=== PATIENT | male | born 1940 | race African-American/Black ===

== ENCOUNTER 2016-07-27 10:48 | Emergency (ER) | payer OTHER ==
[~2016-07-27] VITALS: Ht 180.3 cm; Wt 72.6 kg
[2016-07-27] MEDS ORDERED: GABAPENTIN 100100 MG PER TUBE (11:03)
[2016-07-27] MEDS ORDERED: METFORMIN HCL500 MG PER TUBE (11:03)
[2016-07-27] MEDS ORDERED: LIORESAL 10 MG10 MG PER TUBE (11:04)
[2016-07-27] MEDS ORDERED: OMEPRAZOLE20 M1 PER TUBE (11:04)
[2016-07-27] MEDS ORDERED: NITROFURANTOIN50 M2 PER TUBE (11:05)
[2016-07-27] MEDS ORDERED: STOOL SOFTENER100 M1 PER TUBE (11:06)
[2016-07-27] MEDS ORDERED: NAPROSYN500 MG PER TUBE (11:06)
[2016-07-27] MEDS ORDERED: LIDODERM 5%1 PATC1 TRANSDERM (11:07)
[2016-07-27] MEDS ORDERED: VITAMINC500 PER TUBE (11:07)
[2016-07-27] MEDS ORDERED: ZINC50 M1 PER TUBE (11:07)
[2016-07-27 11:54] LABS: URINE BILIRUBIN NEGATIVE (Negative); URINE BLOOD 3+ (Negative); URINE COLOR YELLOW; URINE GLUCOSE-RANDOM* NEGATIVE (Negative); URINE KETONES 1+ (Negative); URINE LEUKOCYTES-REFLEX 2+ (Negative); URINE PROTEIN (DIPSTICK) 1+ (Negative); URINE SPECIFIC GRAVITY 1.025 (1.003-1.035)
[2016-07-27 11:57] LABS: URINE WBC-REFLEX >25 Many /HPF (0-5)
[2016-07-27 11:59] LABS: CASTS None Seen /LPF (None Seen); CRYSTALS None Seen /LPF (None Seen); SQUAMOUS 0-3 Few /LPF (0-3)
[2016-07-27 12:34] LABS: ABSOLUTE NEUTROPHILS 8.6 thou/uL (1.4-8.2); BASOPHILS 0.7 % (0.0-2.0); EOSINOPHILS 1.9 % (0.0-3.0); HEMATOCRIT 43.4 % (42.0-52.0); HEMOGLOBIN 14.6 gm/dL (14.0-18.0); LYMPHOCYTES 16.3 % (24.0-44.0); MANUAL DIFF NO; MCH 30.4 pg (26.0-34.0); MCHC 33.6 % (28.0-37.0); MCV 90.6 fL (80.0-100.0); MONOCYTES 9.9 % (1.0-8.0); PLATELET COUNT 191 thou/uL (150-400); POLYS 71.2 % (36.0-66.0); RBC 4.79 mil/uL (4.50-6.00); RDW 15.2 % (10.5-14.5); WBC 12.1 thou/uL (4.0-11.0)
[2016-07-27 12:48] LABS: CALCIUM 8.9 mg/dL (8.5-10.1); CREATININE 0.7 mg/dL (0.6-1.3); POTASSIUM 4.2 mmol/L (3.5-5.1)
[2016-07-27 12:54] LABS: ALBUMIN 3.6 g/dL (3.4-5.0); TOTAL BILIRUBIN 0.4 mg/dL (<0.1-1.0); TOTAL PROTEIN 8.7 g/dL (6.4-8.2)
[2016-07-27] MEDS ORDERED: AUGMENTIN 875-1 EACH PO (14:49)
[2016-07-27] MEDS ORDERED: PRILOSEC 20 MG20 MG PO (14:57)
[2016-07-27 15:53] VITALS: BP 113/67
== END 2016-07-27 15:56 | disposition home or self-care (01) ==
LOC: ER 10:48
PROVIDERS: Emergency Medicine
DX: N39.0 Urinary tract infection, site not specified (principal); L03.311 Cellulitis of abdominal wall; T83.098D Other mechanical complication of other urinary catheter, subsequent encounter; K59.00 Constipation, unspecified; E11.9 Type 2 diabetes mellitus without complications

== ENCOUNTER 2017-12-18 23:57 | Inpatient (IN) | payer OTHER ==
[~2017-12-18] VITALS: Ht 180.3 cm; Wt 71.3 kg
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
[~2017-12-18 23:57] MED LIST: AUGMENTIN 875-1 EACH PO; GABAPENTIN 100100 MG PER TUBE; LIDODERM 5%1 PATC1 TRANSDERM; LIORESAL 10 MG10 MG PER TUBE; METFORMIN HCL500 MG PER TUBE; NAPROSYN500 MG PER TUBE; NITROFURANTOIN50 M2 PER TUBE; OMEPRAZOLE20 M1 PER TUBE; PRILOSEC 20 MG20 MG PO; STOOL SOFTENER100 M1 PER TUBE; VITAMINC500 PER TUBE; ZINC50 M1 PER TUBE
[2017-12-19] VITALS (8 sets, daily range): BP systolic 102–121; BP diastolic 55–75
[2017-12-19 01:10] LABS: ABSOLUTE NEUTROPHILS 7.5 thou/uL (1.4-8.2); BASOPHILS 0.6 % (0.0-2.0); EOSINOPHILS 1.5 % (0.0-3.0); HEMATOCRIT 40.8 % (42.0-52.0); HEMOGLOBIN 13.8 gm/dL (14.0-18.0); LYMPHOCYTES 13.8 % (24.0-44.0); MCH 30.8 pg (26.0-34.0); MCHC 33.7 g/dL (28.0-37.0); MCV 91.4 fL (80.0-100.0); MONOCYTES 9.5 % (1.0-8.0); PLATELET COUNT 229 thou/uL (150-400); POLYS 74.6 % (36.0-66.0); RBC 4.46 mil/uL (4.50-6.00); RDW 15.6 % (10.5-14.5); WBC 10.1 thou/uL (4.0-11.0)
[2017-12-19 01:17] LABS: URINE BILIRUBIN NEGATIVE (Negative); URINE BLOOD 1+ (Negative); URINE CLARITY SL CLOUDY; URINE COLOR YELLOW; URINE GLUCOSE-RANDOM* NEGATIVE (Negative); URINE KETONES NEGATIVE (Negative); URINE NITRITE-REFLEX NEGATIVE (Negative); URINE PROTEIN (DIPSTICK) NEGATIVE (Negative); URINE SPECIFIC GRAVITY 1.015 (1.005-1.035)
[2017-12-19 01:17] LABS: CREATININE 0.9 mg/dL (0.7-1.3)
[2017-12-19 01:19] LABS: URINE LEUKOCYTES-REFLEX 3+ (Negative)
[2017-12-19 01:23] LABS: ALBUMIN 3.6 g/dL (3.4-5.0); TOTAL BILIRUBIN 0.2 mg/dL (<0.1-1.0); TOTAL PROTEIN 8.9 g/dL (6.4-8.2)
[2017-12-19 01:32] LABS: BACTERIA-REFLEX >30 Many /HPF (None Seen); CASTS None Seen /LPF (None Seen); CRYSTALS None Seen /LPF (None Seen); MUCUS 0-3 Light strn/LPF (None Seen); SQUAMOUS >10 Many /LPF (0-3); URINE RBC 3-10 Few /HPF (0-2); URINE WBC-REFLEX >25 Many /HPF (0-5)
[2017-12-19] MEDS ORDERED: ZINC50 M2 PER TUBE (04:39)
[2017-12-19] MEDS ORDERED: LACTULOSE10 GM/15 M PER TUBE (04:43)
[2017-12-20] MEDS ORDERED: AUGMENTIN 875-1 EACH PO ×2 (15:42→15:43)
[2017-12-20 16:38] VITALS: BP 112/65
== END 2017-12-20 18:36 | disposition home health service (06) | DRG 698 ==
LOC: ER 23:57 → 4W 12-19 02:12 → EROBS 12-19 02:12 → 4W 12-19 03:03
PROVIDERS: Emergency Medicine
DX: T83.518A Infection and inflammatory reaction due to other urinary catheter, initial encounter (principal); L89.614 Pressure ulcer of right heel, stage 4; L89.894 Pressure ulcer of other site, stage 4; G82.50 Quadriplegia, unspecified; N39.0 Urinary tract infection, site not specified; E11.9 Type 2 diabetes mellitus without complications; L89.152 Pressure ulcer of sacral region, stage 2; Y83.8 Other surgical procedures as the cause of abnormal reaction of the patient, or of later complication, without mention of misadventure at the time of the procedure; Z93.1 Gastrostomy status; Z79.899 Other long term (current) drug therapy; Z90.49 Acquired absence of other specified parts of digestive tract; Y92.89 Other specified places as the place of occurrence of the external cause
CPT/HCPCS: 10045

== ENCOUNTER 2020-01-16 21:38 | Inpatient (IN) | payer OTHER ==
[~2020-01-16] VITALS: Ht 182.9 cm; Wt 72.6 kg
[~2020-01-16 21:38] MED LIST changes: +LACTULOSE10 GM/15 M PER TUBE; +ZINC50 M2 PER TUBE
[2020-01-16 21:39] VITALS: BP 143/66
[2020-01-16 22:07] LABS: ABSOLUTE NEUTROPHILS 10.8 thou/uL (1.4-8.2); BASOPHILS 0.3 % (0.0-2.0); EOSINOPHILS 0.7 % (0.0-3.0); HEMATOCRIT 43.1 % (42.0-52.0); HEMOGLOBIN 13.7 gm/dL (14.0-18.0); LYMPHOCYTES 4.2 % (24.0-44.0); MCH 30.2 pg (26.0-34.0); MCHC 31.9 g/dL (28.0-37.0); MCV 94.6 fL (80.0-100.0); MONOCYTES 5.5 % (1.0-8.0); PLATELET COUNT 192 thou/uL (150-400); POLYS 89.3 % (36.0-66.0); RBC 4.55 mil/uL (4.50-6.00); RDW 16.2 % (10.5-14.5); WBC 12.1 thou/uL (4.0-11.0)
[2020-01-16 22:13] LABS: ANION GAP 1 mmol/L (7-16); BUN 17 mg/dL (7-18); CALCIUM 6.5 mg/dL (8.5-10.1); CHLORIDE 108 mmol/L (98-107); CO2 31 mmol/L (21-32); CREATININE 0.3 mg/dL (0.7-1.3); GLUCOSE 134 mg/dL (74-106); POTASSIUM 3.7 mmol/L (3.5-5.1); SODIUM 140 mmol/L (136-145)
[2020-01-16 22:21] LABS: URINE BILIRUBIN NEGATIVE (Negative); URINE BLOOD 2+ (Negative); URINE CLARITY CLOUDY; URINE COLOR YELLOW; URINE GLUCOSE-RANDOM* NEGATIVE (Negative); URINE KETONES NEGATIVE (Negative); URINE NITRITE-REFLEX NEGATIVE (Negative); URINE PROTEIN (DIPSTICK) 1+ (Negative); URINE SPECIFIC GRAVITY >= 1.030 (1.005-1.035); URINE UROBILINOGEN 0.2 E.U./dl (0.2-1.0)
[2020-01-16 22:23] LABS: ALBUMIN 2.3 g/dL (3.4-5.0); SGOT 22 U/L (15-37); SGPT 15 U/L (30-65); TOTAL BILIRUBIN 0.1 mg/dL (0.2-1.0); TOTAL PROTEIN 6.7 g/dL (6.4-8.2); TROPONIN-I <0.06 ng/mL (<0.06)
[2020-01-16 22:26] LABS: URINE LEUKOCYTES-REFLEX 3+ (Negative)
[2020-01-16 22:32] LABS: AMP/METHAMP Negative (Negative); BARBITURATES Negative (Negative); BENZODIAZEPINES Negative (Negative); COCAINE Negative (Negative); METHADONE Negative (Negative); OPIATES Negative (Negative); PCP Negative (Negative)
[2020-01-16 22:34] LABS: CASTS None Seen /LPF (None Seen); CRYSTALS None Seen /LPF (None Seen); SQUAMOUS 4-10 Moderate /LPF (0-3); URINE WBC-REFLEX >25 Many /HPF (0-5); YEAST-REFLEX Present (None Seen)
[2020-01-16 22:35] LABS: URINE RBC 3-10 Few /HPF (0-2)
[2020-01-16 22:59] LABS: BE(vivo) 7.4 mmol/L (-2 to +3); HCO3 41.1 mmol/L (22.0-26.0); PCO2 119.5 mmHg (35.0-45.0); PO2 67.3 mmHg (80.0-100.0); sO2 85.6 % (92.0-98.0)
[2020-01-16 23:00] LABS: pH 7.154 (7.360-7.450)
[2020-01-16 23:39] VITALS: BP 162/89
[2020-01-17] VITALS (30 sets, daily range): BP systolic 85–158; BP diastolic 41–83
[2020-01-17 00:25] LABS: BE(vivo) 6.1 mmol/L (-2 to +3); PCO2 120.7 mmHg (35.0-45.0); PO2 83.5 mmHg (80.0-100.0); sO2 91.6 % (92.0-98.0)
[2020-01-17 00:26] LABS: pH 7.138 (7.360-7.450)
[2020-01-17 02:45] LABS: BE(vivo) 0.6 mmol/L (-2 to +3); HCO3 34.8 mmol/L (22.0-26.0); PO2 112.2 mmHg (80.0-100.0); sO2 95.6 % (92.0-98.0)
[2020-01-17 02:47] LABS: PCO2 120.5 mmHg (35.0-45.0); pH 7.078 (7.360-7.450)
[2020-01-17 04:40] LABS: BE(vivo) 4.4 mmol/L (-2 to +3); HCO3 26.3 mmol/L (22.0-26.0); PCO2 31.1 mmHg (35.0-45.0); PO2 83.6 mmHg (80.0-100.0); pH 7.545 (7.360-7.450); sO2 97.4 % (92.0-98.0)
[2020-01-17 06:03] LABS: HEMATOCRIT 43.5 % (42.0-52.0); MCH 30.7 pg (26.0-34.0); MCHC 32.2 g/dL (28.0-37.0); MCV 95.5 fL (80.0-100.0); RBC 4.55 mil/uL (4.50-6.00); RDW 16.6 % (10.5-14.5); WBC 13.2 thou/uL (4.0-11.0)
[2020-01-17 06:14] LABS: CREATININE 0.6 mg/dL (0.7-1.3)
--- NOTE | 2020-01-17 08:12 | EKG ---
[facility] [place] [place] [address] ELECTROCARDIOGRAM REPORT Name: SABA ABDI Room #: 236-P ADM IN M.R.#: [id number] Admission: 01/16/20 Attend Phys: Johnny Collier MD Discharge: Date of : 42 Report #: [id number] THIS REPORT FOR: cc: [facility] - Clinic physician unknown [facility] - Clinic physician unknown Rusty Roberson MD [facility] THIS REPORT FOR: //name// [facility] ED Test Date: 2020-01-16 Test Time: 22:03:48 Pat Name: SABA ABDI Department: Room: [facility] Gender: M Supervisor [employer]: JENNIFER : 1940 Requested By: Dee Cortés Order Number: [id number] MD: Rusty Roberson Measurements Intervals [place] Rate: 106 P: 71 LA: 208 QRS: -23 QRSD: 84 T: 87 QT: 325 QTc: 432 Interpretive Statements Sinus tachycardia Borderline prolonged LA interval Borderline left axis deviation Baseline wander in lead(s) V2,V6 No previous ECG available for comparison Electronically Signed On 01-17-2020 8:12:14 CDT by Rusty Roberson [email or web address] <ELECTRONICALLY SIGNED> By: Rusty Roberson MD, [facility] 01/17/20811 02 02 Rusty Roberson MD, [facility] /EPI
--- NOTE | 2020-01-17 08:41 | NUR ---
RECEIVED PT FROM ER TO ICU 236. PT R/O COVID, TESTED NEGATIVE AT LAST WEEK PER CAREGIVER. ENHANCED PRECAUTIONS FOLLOWED. PT CONT TO BE LETHARGIC, AND MINIMALLY RESPONSIVE ON BIPAP. PC02 CONT AT 120. ER PHYSICIAN SPOKE WITH PT DPOA REGARDING INTUBATION. PT WAS INTUBATED, AND WAS ALERT WITHIN IN LESS THAN 30 MINUTES, PT MOUTHING WORDS AND NODDING YES/NO APPROPRIATELY. DOES GAG ON TUBE/AND ORAL SECRETIONS DUE TO HYPEREXTENDED NECK POSITION. PROPOFOL STARTED FOR LIGHT SEDATION. VS WNL. UO MINIMALLY ADEQUATE. IVF INFUSING. PEG TUBE LEAKING OLD TUBE FEEDING FROM INSERT SITE. INSERTED AT AND HAS BEEN ONGOING ISSUE REGARDING LEAKING. CONSULT CALLED TO DR PARMAR-AWAITING CALL BACK. PT PROGRESSING TOWARD GOALS. CONT PLAN OF CARE. INTUBATED AT 0315.
--- NOTE | 2020-01-17 08:52 | NUR ---
When tube feed ready to start, recommend glucerna 1.2 at 80ml/hr. Hold water flushes while on IVF 125 ml/hr
--- NOTE | 2020-01-17 10:22 | NUR ---
WOUND CONSULT; ASSESSMENT TODAY REVEALED A STAGE 3 WOUND TO THE RIGHT HEEL AND THE RIGHT BUTTOCKS WIT5H BEEFY RED TISSUE TO BOTH. BOTH WOUNDS LOOK VERY HEALTHY BUT CANNOT R/O A SILIENT INFECTION. RECOMMENDATION; CONSULT DR LAN FOR HIS OPINION. DISCUSSED WITH SERA
[2020-01-17 12:25] LABS: BE(vivo) 0.5 mmol/L (-2 to +3); HCO3 23.3 mmol/L (22.0-26.0); PCO2 32.1 mmHg (35.0-45.0); PO2 109.7 mmHg (80.0-100.0); pH 7.479 (7.360-7.450); sO2 98.3 % (92.0-98.0)
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
--- NOTE | 2020-01-17 15:23 | NUR ---
RISK, BENEFITS, AND ALTERNATIVE TREATMENT DISCUSSED WITH THE DPOA RELATED TO PICC PROCEDURE. TEACHING GIVEN RELATED TO POSSIBLE COMPLICATIONS SUCH BLEEDING, INFECTION, CLOT, OR VESSEL PERFORATION. INSTRUCTION GIVEN RELATED TO CLABSI PREVENTION WITH LITERATURE LEFT AT THE BEDSIDE. DPOA VOICES UNDERSTANDING TO THE ABOVE. CONSENT OBTAINED. TRIPLE LUMEN PICC PLACED TO RUE. ONE STICK AND NO COMPLICATIONS. PATIENT TOLERATED WELL. PICC LENGHT =38CM. EXT.=0CM. V.O.=22%. TIP OF PICC VERIFIED SVC PER CHEST XRAY. SERA MARTINEZ NOTIFIED OKAY TO USE PICC.
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
--- NOTE | 2020-01-17 16:44 | NUR ---
WAS NOTIFIED BY MIRA FROM [facility] ON SERVICE WITH THEN PRIOR TO ADM FAXED CLINICAL UPDATE AND RECEIVED CONFIRMATION. DP TO FOLLOW.
--- NOTE | 2020-01-17 18:00 | NUR ---
CAREGIVER-MARIANA CHAVEZ INQUIRED X 2 REGARDING PT STATUS. UPDATED ON VENT, DECREASING SEDATION, INTERMITTENTLY ALERT, NODDING YES AND NO. DR. WATTERS, GI PRESENT, THEN ADJUSTED PEG TUBE. NO FURTHER LEAKING SINCE ADJUSTMENT. ALL QUESTIONS ANSWERED TO SATISFACTION.
--- NOTE | 2020-01-17 21:38 | NUR ---
PT TRANSFERRED TO ROOM 249 HE IS COVID NEGATIVE X2 AND CLEARED PER DR. MURO.
[2020-01-18] VITALS (22 sets, daily range): BP systolic 115–152; BP diastolic 75–98
--- NOTE | 2020-01-18 06:22 | NUR ---
Pt is responsive to cares, he nodded yes when asked if he was in pain after his bath, but did not respond when asked if he wanted any prn meds. His vitals signs were stable, and heart rate decreased after a short time. The buttocks wounds were re-dressed, a small amount of bleeding was noted with the left side, wound bed was pink/red with 75% of slough seen, no odor. The G-Tube site was reddened, gauze was placed, no further leaking was seen. The suprapubic cather had 225 ml's of gertrudis urine, the site is intact, no leaking noted. The pt is slow to reach POC goals, the bed is in the low/locked position and siderails are up x 4.
--- NOTE | 2020-01-18 11:30 | NUR ---
discussed during los, not anticipated dc, remain on vent. cm left message requested joel [phone] to call back
[2020-01-18 13:41] LABS: BE(vivo) -1.2 mmol/L (-2 to +3); HCO3 23.5 mmol/L (22.0-26.0); PCO2 39.2 mmHg (35.0-45.0); PO2 183.9 mmHg (80.0-100.0); pH 7.395 (7.360-7.450); sO2 99.3 % (92.0-98.0)
--- NOTE | 2020-01-18 15:32 | NUR ---
1100-DR PARMAR ROUNDED ON PATIENT. ORDER TO PLACE PATIENT ON CPAP FOR ONE HOUR, THEN DRAW ABGS, AND PUT BACK ON AC. 1145-RT PLACED PATIENT ON CPAP MODE. PROPOFOL GTT STOPPED AT THIS TIME. PATIENT RESPONDS TO STAFF BY NODDING HEAD YES OR NO. PATIENT APPEARS COMFORTABLE. OXYGEN SATURATIONS MAINTAINED BETWEEN 98-100%. 1341-RECEIVED ABGS RESULTS. 1346-ABGS RESULTS CALLED TO DR PARMAR. ORDER TO EXTUBATE PATIENT. ORDER TO START GTUBE FEEDINGS GLUCERNA 1.2 WITH GOAL OF 80CC/HR. HOLD WATER FLUSHES IF PT IS ON IVF. 1455-RT EXTUBATED PATIENT. PATIENT PLACED ON FACE SHIELD AT 35% FIO2. 1530-VANC TROUGH 17. PAGED DR MURO REGARDING VANC DOSE. 1546-UPDATED DR MURO. ORDER TO GIVE VANC DOSE ORDERED.
--- NOTE | 2020-01-18 17:54 | NUR ---
ATTEMPTED TO CALL PATIENT'S HOUSEKEEPING CLEANER FAVIO. FAVIO DID NOT ANSWER THE PHONE.
[2020-01-19] VITALS (19 sets, daily range): BP systolic 91–164; BP diastolic 55–100
[2020-01-19 05:00] LABS: BE(vivo) -2.3 mmol/L (-2 to +3); HCO3 23.3 mmol/L (22.0-26.0); PCO2 42.8 mmHg (35.0-45.0); PO2 113.2 mmHg (80.0-100.0); pH 7.353 (7.360-7.450)
[2020-01-19 05:54] LABS: ABSOLUTE NEUTROPHILS 11.9 thou/uL (1.4-8.2); BASOPHILS 0.2 % (0.0-2.0); EOSINOPHILS 0.2 % (0.0-3.0); HEMATOCRIT 34.1 % (42.0-52.0); LYMPHOCYTES 8.4 % (24.0-44.0); MCH 30.2 pg (26.0-34.0); MCHC 32.9 g/dL (28.0-37.0); MCV 91.7 fL (80.0-100.0); MONOCYTES 10.4 % (1.0-8.0); PLATELET COUNT 183 thou/uL (150-400); POLYS 80.8 % (36.0-66.0); RBC 3.72 mil/uL (4.50-6.00); RDW 16.4 % (10.5-14.5); WBC 14.7 thou/uL (4.0-11.0)
--- NOTE | 2020-01-19 05:54 | NUR ---
ASSUMED PT CARE AT 1900. PT IS ALERT AND ORIENTED. NO SIGN OF DISTRESS NOTED IN PT. PT IS STABLE. AT THE BEGINNIN OF SHIFT, SUPRAPUBIC CATH LEAKING, BALLON REINFLATED. J-TUBE ALSO NOTING TO BE LEAKING WELL THROUGH THE NIGHT. DRESSING ON J-TUBE DONE. REPOSITIONING. ASSESSMENT COMPLETED AND DOCUMENTED. SCHEDULED MEDS ADMINISTERED TO PT. PT IS NPO. TUBE FEEDING CONTINOUS. CONTINUE TO MONITOR PT. DENIES ANY NEEDS AT THIS TIME
[2020-01-19 06:03] LABS: HEMOGLOBIN 11.2 gm/dL (14.0-18.0)
[2020-01-19 06:30] LABS: CREATININE 0.3 mg/dL (0.7-1.3)
[2020-01-19 06:34] LABS: POTASSIUM 2.8 mmol/L (3.5-5.1)
--- NOTE | 2020-01-19 10:09 | NUR ---
ASSUMED CARE AT 0700, ASSESSMENT AND VITAL SIGNS COMPLETED PER ICU PROTOCOL. DR. VILLAFANA ROUNDED THIS AM, PLAN OF CARE DISCUSSED AND NEW ORDERS RECEIVED. RN WILL CONTINUE TO MONITOR.
--- NOTE | 2020-01-19 18:43 | NUR ---
ASSUMMED PT CARE AT APPROXIMATELY 1530. PT A&O X3. ASSESSMENT CHARTED. FALL PRECAUTIONS IN PLACE. PT DENIES HAVING CHEST PAIN. PT DENIES HAVING CHEST PAIN. PT DENIES HAVING SOB. PT DENIES HAVING CHEST PAIN. PT DENIES HAVING ACUTE PAIN. PT COMFORTABLE IN BED. VITAL SIGNS STABLE. BLOOD SUGARS STABLE.
[2020-01-20] VITALS: BP 155/89
--- NOTE | 2020-01-20 01:55 | NUR ---
GLUCERNA 1.2 WAS INCREASED TO 80 ML/HR WHICH IS THE GOAL RATE.RESIDUAL IS LESS THAN 30 CC.PATIENT FEELS FULL SO TUBE FFEDING WAS STOPPED FOR ONE HOUR AND RESUMED.PATIENT FELT BETTER.REPOSITIONED Q2 HOURS AND NEEDED.PAIN WELL CONTROLLED.MONITOR SHOWS SR.POC CONTINUED.
[2020-01-20 03:50] VITALS: BP 142/76
[2020-01-20 07:30] VITALS: BP 157/73
[2020-01-20 11:50] VITALS: BP 152/71
--- NOTE | 2020-01-20 13:34 | NUR ---
QUADRIPLEGIC. COMPLETE CARES. TUBE FEEDING NO LONGER LEAKING AFTER DR. WATTERS'S INTERVENTION. SUPERPUBIC CATH STILL LEAKING; WILL CHECK BALLOON VOLUME AND SEE IF CAN BE SAFELY INCREASED. GOWN, BED LINENS CHANGED D/T URINE LEAK. SR PER TELE. WILL CONTINUE TO FOLLOW CLOSELY.
[2020-01-20 18:05] VITALS: BP 178/81
[2020-01-20 20:50] VITALS: BP 171/87
[2020-01-21] VITALS: BP 165/64
--- NOTE | 2020-01-21 03:04 | NUR ---
PT IS ALERT AND ORIENTED X4. LEGALLY BLIND. LUNG ARE DIMINISHED. ON ROOM AIR. GETS BREATHING TREATEMTNS. WOUNDS FOR WOUND TREATEMENT PER CARE PLAN. TOLERATING TUBE FEEDING. SUPRAPUBIC CATHETER.ON ANTIBIOTCS ON SEP FOR CARE PLAN. TURN Q 2 HOURS. VITALS ARE STABLE. BOOTS ON BILAERAL. WILL CONTINUE TO ASSESS AND MONITOR PER NURSING
[2020-01-21 04:00] VITALS: BP 158/80
[2020-01-21 07:20] VITALS: BP 141/74
[2020-01-21 11:00] VITALS: BP 141/61
[2020-01-21 15:10] VITALS: BP 142/56
--- NOTE | 2020-01-21 17:41 | NUR ---
PT CARE ASSUMED APPROX 0700. ASSESSMENTS CHARTED. PT REPORTS 6/10 LEFT FOOT PAIN. PT REPORTS ADEQUATE PAIN MANAGEMENT BUT PT'S DPOA DOES NOT WANT HIM TO HAVE MORPHINE. CALL OUT TO DR BRUCE FOR PAIN MANAGEMENT POC CHANGES. PT REFUSING TURNS AT TIMES THIS SHIFT. WOUND CARE COMPLETED ORDERED. PT TOLERATING POC. VSS. BS SLIGHTLY ELEVATED. SSI MANAGING. CLINICAL UPDATE GIVEN TO DPOA. SHE WANTS TO SIGN PROCEDURE CONSENT IN THE AM. PT IN NO DISTRESS AT THIS TIME.
[2020-01-21 20:42] VITALS: BP 162/82
[2020-01-22 05:12] VITALS: BP 153/80
[2020-01-22 07:15] VITALS: BP 146/96
--- NOTE | 2020-01-22 08:09 | NUR ---
REFUSED REPOSITIONING AND REFUSED PRAFO BOOTS TONIGHT.TUBE FEEDING STOPPED AROUND MIDNIGHT FOR A POSSIBLE PROCEDURE TODAY.RANDLE TO DD.DENIES PAIN.MONITOR SHOWS SR,ST.POC CONTINUED.
[2020-01-22] MEDS ORDERED: IPRAT-ALBUT 0.5-3 ML INH (10:13)
[2020-01-22] MEDS ORDERED: PREDNISONE 20 M20 MG PO (10:14)
[2020-01-22 11:10] VITALS: BP 123/70
--- NOTE | 2020-01-22 12:35 | NUR ---
Sp with caregiver Samuel planned arteriogram today. patient npo for GI procedure in am. Crystal reports concern regarding torres. requestes Dr Claros call Crystal to discuss. casemgt following.
[2020-01-22 15:15] VITALS: BP 132/68
[2020-01-22 19:38] VITALS: BP 159/80
--- NOTE | 2020-01-22 19:42 | NUR ---
ASSUMED CARE PT SHIFT CHANGE. ASSESSMENTS CHARTED. MEDS NOT GIVEN DUE TO PT BEING NPO. ALERT AND ORIENTED. VSS. PT QUADRIPLEGIC, TURNS ENFORCED. CAREGIVER AT BEDSIDE THROUGH DAY. CARDS UNABLE TO GET PROCEDURE DONE TODAY. WILL DO TOMORROW. GI TO DO PEG TUBE PROCEDURE TOMORROW WELL. CAREGIVER AND PT UPDATED. SUPRAPUBIC CATH CONTINUES TO LEAK. HOSPITALIST NOTIFIED. PEG TUBE SITE LEAKING MINIMAL. DRESSING REMAINS ON. PT CURRENTLY RESTING COMFORTABLY IN BED. REPORT GIVEN TO JUAN ALBERTO ZAMORA.
[2020-01-23] VITALS (18 sets, daily range): BP systolic 88–154; BP diastolic 55–87
[2020-01-23 05:52] LABS: HEMATOCRIT 39.8 % (42.0-52.0); HEMOGLOBIN 13.1 gm/dL (14.0-18.0); MCH 30.5 pg (26.0-34.0); MCHC 32.9 g/dL (28.0-37.0); MCV 92.5 fL (80.0-100.0); PLATELET COUNT 227 thou/uL (150-400); RDW 16.2 % (10.5-14.5); WBC 16.1 thou/uL (4.0-11.0)
[2020-01-23 05:55] LABS: CREATININE 0.5 mg/dL (0.7-1.3); POTASSIUM 3.7 mmol/L (3.5-5.1)
--- NOTE | 2020-01-23 06:38 | NUR ---
NPO FOR POSSIBLE PROCEDURE TODAY.DRESSING CHANGE DONE.O2 2L NC.MOUTH SECRETIONS NOTED.KOURTNEYKAUER CONNECTED FOR SUCTION.COMPLAIN OF PAIN BUT REFUSES PAIN MEDS.MONITOR SHOWS SINUS TACHY.POC CONTINUED.
[2020-01-23 10:04] LABS: METAMYELOCYTES 1 %
[2020-01-23 10:13] LABS: ANISOCYTOSIS 1+
--- NOTE | 2020-01-23 17:34 | NUR ---
ASSUMED CARE PT SHIFT CHANGE. ASSESSMENTS CHARTED.MEDS GIVEN PER SEP. PT ALERT, ORIENTED. VSS. DENIES PAIN. O2 SATS WNL ON 2L. Q2 TURNS ENFORCED, PT WOULD REFUSE AT TIMES. EDUCATED ABOUT IMPORTANCE OF TURNING AND WOUNDS ON SARAL AREA. PT HAD ANGIOGRAPHY PROCEDURE WITH STENT PLACEMENT--SEE REPORT. UPON RETURN LEFT GROIN CDI, NO HEMATOMA. VSS, POST CATH VITALS INITIATED. BEDREST ORDERS IMPLEMENTED. PPN STARTED PER GI ORDERS. FLUIDS INFUSING PER CARDIOLGY ORDERS. PT RESTING COMFORTABLY IN BED. CONTINUING TO MONITOR.
[2020-01-24] VITALS (11 sets, daily range): BP systolic 102–148; BP diastolic 52–71
[2020-01-24 05:56] LABS: HEMATOCRIT 36.3 % (42.0-52.0); HEMOGLOBIN 11.8 gm/dL (14.0-18.0); MCH 30.2 pg (26.0-34.0); MCHC 32.4 g/dL (28.0-37.0); MCV 93.4 fL (80.0-100.0); RBC 3.89 mil/uL (4.50-6.00); RDW 16.4 % (10.5-14.5); WBC 14.2 thou/uL (4.0-11.0)
[2020-01-24 06:34] LABS: CALCIUM 8.2 mg/dL (8.5-10.1); CREATININE 0.5 mg/dL (0.7-1.3)
--- NOTE | 2020-01-24 15:51 | P ---
[facility] [place] [address] PROCEDURE REPORT Name: SABA ABDI Room #: 201-P [facility] IN M.R.#: [id number] Admission: 01/16/20 Attend Phys: Johnny Collier MD Discharge: Date of : 44 Report #: [id number] THIS REPORT FOR: cc: [facility] - Clinic physician unknown [facility] - Clinic physician unknown Jorge Bonilla MD ~ CC: Johnny Collier [facility] unknown BRIEF HISTORY: The patient is a 79-year-old male with multiple medical problems with an indwelling PEG tube with leakage around the tube. The patient presents for replacement of indwelling PEG tube with up sizing of the PEG tube due to leakage. PREOPERATIVE DIAGNOSIS: Dysphagia and current PEG tube with leakage. POSTOPERATIVE DIAGNOSIS: Dysphagia and current PEG tube with leakage. MEDICATIONS: Deep sedation with propofol per anesthesia. SPECIMEN: None. ESTIMATED BLOOD LOSS: None. PROCEDURE: Percutaneous endoscopic gastrostomy tube placement. FINDINGS: Prior to propofol sedation, procedure of PEG tube replacement with an upsized tube was discussed with the patient as well as . They indicate they understand and desire that we proceed. DESCRIPTION OF PROCEDURE: With the patient in supine position, his head and chest were raised about 25-30 degrees, the Olympus video endoscope was inserted in cervical esophagus under direct vision without difficulty. Examination of this organ through its entire length revealed normal esophageal mucosa down the squamocolumnar junction. Squamocolumnar junction was inspected and noted to be unremarkable. Scope was advanced in the stomach, was examined on end view as well as retroflexed views. The gastric mucosa was unremarkable. In the distal body of the stomach, the balloon tipped gastrostomy tube was seen entering the stomach and was noted to be unremarkable. There was no evidence of mucosal ulceration. Upon retroflexion, no mass or lesions were seen. The antrum was unremarkable. Pylorus, duodenal bulb, and postbulbar duodenal sweep down to third portion were unremarkable. Scope was withdrawn back into the body of the stomach. Very carefully, a guidewire was passed alongside the indwelling PEG tube. This was grasped with a snare and once the guidewire was secure, the balloon was let down on the existing gastrostomy tube and the tube was pulled out. We used the existing [facility] [address] [place] [address] PROCEDURE REPORT Name: SABA ABDI Room #: 201-P ADM IN M.R.#: [id number] Admission: 01/16/20 Attend Phys: Johnny Collier MD Discharge: Date of : 44 Report #: [id number] fistula. Subsequently, a 24-Zambian gastrostomy tube advanced over the wire with leading tip seen coming through the fistula, which was grasped and the tube was pulled in position. The external restraining device was applied. The patient tolerated the procedure well. DISPOSITION: Indwelling PEG tube removed and replaced with a new 24-Zambian tube. The previous tube was 22-Zambian. I have discussed with the patient's caregiver management of the PEG tube. I have explained that they should not put any tension whatsoever on the PEG tube, so that it puts pressure on the fistula and causes further erosion. If this tube leaks, he may need removal of the PEG tube to allow closure of the existing fistula and insertion of a new PEG tube at a different site. At this point in time, may resume tube feedings. <ELECTRONICALLY SIGNED> By: Jorge Bonilla MD 01/24/20 [id number] Jorge Bonilla MD /nt
--- NOTE | 2020-01-24 19:47 | NUR ---
ASSESSMENT DOCUMENTED. VSS. SINUS TACH ON THE MONITOR. ASSUMED CARE OF THE PT APPROXIMATELY 0930. PT NPO. PT TO REMAIN NPO UNTIL SPEECH EVAL TO BE DONE IN THE MORNING (01/24). PPN RESUMED WHEN BACK FROM IR. R GROIN DRESSING C/D/I. NO S/SX OF HEMATOMA OR BLEEDING. PT OFF THE UNIT FOR GI PEG TUBE PROCEDURE AND IR ARTERIOGRAM. PT OFF UNIT APPROXIMATELY FROM 1200 TO 1715. PT RESTING IN BED WITH CALL LIGHT IN REACH. WILL CONTINUE TO MONITOR AND TURN PT Q2 HRS.
[2020-01-25 04:00] VITALS: BP 120/59
[2020-01-25 07:07] LABS: CALCIUM 8.6 mg/dL (8.5-10.1); CREATININE 0.4 mg/dL (0.7-1.3); POTASSIUM 4.2 mmol/L (3.5-5.1)
[2020-01-25 07:57] VITALS: BP 148/62
[2020-01-25 11:55] VITALS: BP 132/67
[2020-01-25 14:03] LABS: HEMATOCRIT 33.3 % (42.0-52.0); MCH 30.5 pg (26.0-34.0); MCHC 32.9 g/dL (28.0-37.0); MCV 92.8 fL (80.0-100.0); RBC 3.59 mil/uL (4.50-6.00); WBC 13.1 thou/uL (4.0-11.0)
[2020-01-25 14:19] LABS: ALBUMIN 2.5 g/dL (3.4-5.0); CALCIUM 8.5 mg/dL (8.5-10.1); CREATININE 0.4 mg/dL (0.7-1.3); POTASSIUM 4.6 mmol/L (3.5-5.1); TOTAL BILIRUBIN 0.2 mg/dL (0.2-1.0); TOTAL PROTEIN 7.5 g/dL (6.4-8.2)
--- NOTE | 2020-01-25 15:10 | NUR ---
PT ON SERVICE WITH [facility] PRIOR TO ADM FAXED CLINICAL UPDATE SPOKE WITH MIRA IN INTAKE SHE RECEIVED UPDATE. DP TO FOLLOW.
[2020-01-25 15:25] VITALS: BP 167/71
[2020-01-25 19:41] VITALS: BP 151/78
--- NOTE | 2020-01-26 03:58 | NUR ---
ASSUMED PT CARE AT 1900. PT IS ALERT AND ORIENTED. PT IS A QUADRAPLEGIC. NO SIGN OF DISTRESS NOTED IN PT. PT IS STABLE. TUBE FEEDING IN PLACE. ASSESSMENT COMPLETED AND DOCUMENTED. REPOSITIONING DONE. PT DOES REFUSED TO BE REPOSITION. SCHEDULED MEDS ADMINISTERED TO PT VIA PEG TUBE. TUBE FEEDING RATE INCREASE TO 50 CC/HR BUT PATIENT DIDNT TOLERATE THAT RATE. TUBE FEEDING HELD DUE TO HIGH RESIDUALS. CONTINUE TO MONITOR PT. NO FURTHER NEEDS AT THIS TIME
[2020-01-26 04:29] VITALS: BP 155/68
[2020-01-26 06:24] LABS: HEMATOCRIT 32.2 % (42.0-52.0); HEMOGLOBIN 10.6 gm/dL (14.0-18.0); MCH 30.6 pg (26.0-34.0); MCHC 33.1 g/dL (28.0-37.0); MCV 92.4 fL (80.0-100.0); RBC 3.48 mil/uL (4.50-6.00); RDW 15.9 % (10.5-14.5); WBC 12.1 thou/uL (4.0-11.0)
[2020-01-26 06:40] LABS: CALCIUM 8.9 mg/dL (8.5-10.1); CREATININE 0.4 mg/dL (0.7-1.3); MAGNESIUM 2.1 mg/dL (1.8-2.4); POTASSIUM 5.2 mmol/L (3.5-5.1)
[2020-01-26 08:00] VITALS: BP 134/70
--- NOTE | 2020-01-26 10:32 | NUR ---
ASSUMED PT CARE AT 0700, PT ASSESSED, VSS, POC REVIEWED, PT VERBALIZED UNDERSTANDING, MEDS GIVEN VIA PEG TUBE, BREAKFAST TRAY OFFERED, PT ASKED WHAT WAS ON THE TRAY AND THEN REPLIED THAT HE DIDN'T WANT TO EAT ANY OF IT. TUBE FEEDING INCREASED TO 35, PPN DISCONTINUED PER ORDERS, DRESSING CHANGES DONE, PT REPOSITIONED, MORPHINE GIVEN FOR PAIN PRIOR TO DRESSING CHANGES. PT RESTING IN BED, WILL MONITOR
[2020-01-26 11:39] VITALS: BP 142/79
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
--- NOTE | 2020-01-26 12:53 | NUR ---
Since pt now allowed to eat, will adjust tube feeding goal rate to 60ml/hr of glucerna 1.2. Starting a calorie count today.
[2020-01-26 16:00] VITALS: BP 154/85
--- NOTE | 2020-01-26 17:45 | NUR ---
If patient to [place] home over weekend please call home health care [phone] Fax orders to [phone]. [phone]. Patient does not have nebulizer at home. If ordered call [facility] [phone] . Fax script and pertinent information to [facility] to deliver nebulzer to home.
[2020-01-26 19:38] VITALS: BP 152/76
[2020-01-27 04:45] VITALS: BP 161/74
--- NOTE | 2020-01-27 05:45 | NUR ---
ASSUMED PT CARE AT 1900. PT IS ALERT AND ORIENTED. NO SIGN OF DISTRESS NOTED IN PT. PT IS STABLE. ASSESSMENT COMPLETED AND DOCUMENTED. TUBE FEEDING IN PLACE. SCHEDULED MEDS ADMINISTERED TO PT VIA PEG TUBE. NO SIGN OF DISTRESS NOTED IN PT. CONTINUE TO MONITOR.
[2020-01-27 06:29] LABS: HEMATOCRIT 34.6 % (42.0-52.0); HEMOGLOBIN 11.2 gm/dL (14.0-18.0); MCHC 32.4 g/dL (28.0-37.0); MCV 92.5 fL (80.0-100.0); RBC 3.74 mil/uL (4.50-6.00); RDW 15.8 % (10.5-14.5); WBC 14.2 thou/uL (4.0-11.0)
[2020-01-27 06:38] LABS: CALCIUM 9.3 mg/dL (8.5-10.1); CREATININE 0.4 mg/dL (0.7-1.3); MAGNESIUM 1.9 mg/dL (1.8-2.4); POTASSIUM 5.2 mmol/L (3.5-5.1)
[2020-01-27 08:28] VITALS: BP 183/96
[2020-01-27 12:56] VITALS: BP 135/73
[2020-01-27 17:11] VITALS: BP 129/75
--- NOTE | 2020-01-27 18:17 | NUR ---
pt refusing turns all day, refusing to eat, took one bite of a cookie at dinner and wanted nothing else. pt refusing to let rn change his dressings on his backside, did change abdominal and foot dressings.
[2020-01-27 19:30] VITALS: BP 132/67
[2020-01-28 03:40] VITALS: BP 150/93
[2020-01-28 05:39] LABS: HEMATOCRIT 29.4 % (42.0-52.0); HEMOGLOBIN 9.6 gm/dL (14.0-18.0); MCH 30.5 pg (26.0-34.0); MCHC 32.6 g/dL (28.0-37.0); MCV 93.6 fL (80.0-100.0); RBC 3.14 mil/uL (4.50-6.00); RDW 16.1 % (10.5-14.5); WBC 12.4 thou/uL (4.0-11.0)
[2020-01-28 05:45] LABS: CREATININE 0.3 mg/dL (0.7-1.3); MAGNESIUM 1.5 mg/dL (1.8-2.4)
--- NOTE | 2020-01-28 05:46 | NUR ---
PT IS ALERT AND ORIENTED X4. LUNGS ARE COARSE. AND COGESTED COUGHS CLEAR FLUID UP SO SUCTION WITH AAKASH FOR PT. CONTRACTED. Q 2 HOURS TURNS. AND DRESSING CHANGE ON RIGHT HEEL AND COCCYX WOUND DONE PER NURSING STAFF THIS AM. SITING UPRIGHT HAD A LARGE BROWN SOFT FORMED STOOL. SAYS HE FEELS BETTER THIS AM. ABDOMEN IS ROUND. AND FIRM. BUT HE REPORTS FEELING BETTER. BOOT ON LEFT HEEL. SITING IN AN 45 DEGREE ANGLE. WILL CONTINUE TO ASSESS AND MONITOR PER NURSING
[2020-01-28 06:04] LABS: CALCIUM 6.8 mg/dL (8.5-10.1); POTASSIUM 3.4 mmol/L (3.5-5.1)
[2020-01-28 08:00] VITALS: BP 158/81
[2020-01-28 09:00] VITALS: BP 158/81
[2020-01-28 16:15] VITALS: BP 127/72
[2020-01-28 19:39] VITALS: BP 140/61
--- NOTE | 2020-01-28 20:09 | NUR ---
ASSUMMED PT CARE AT APPROXIMATELY 0700. PT A&O X3/4. ASSESSMENT CHARTED. FALL PRECAUTIONS IN PLACE. PT DENIES HAVING CHEST PAIN. PT DENIES HAVING SOB. PT STATED HE HAD OCCASIONAL PAIN. PT RECEIVED ANALGESICS. PT STATED ANALGESICS HELPED RELIEVE PAIN. WOUND CARE GIVEN. VITAL SIGNS STABLE. BLOOD SUGARS STABLE. EDUCATED PT ABOUT POC. PT STATED UNDERSTANDING. SEE TUBE FEEDING INTERVENTION. PT COMFORTABLE IN BED. PT DENIES HAVING FURTHER CONCERNS.
[2020-01-29] VITALS (9 sets, daily range): BP systolic 110–133; BP diastolic 50–75
--- NOTE | 2020-01-29 04:36 | NUR ---
ASSUMED PATIENT CARE AT 1845. VITAL SIGNS STABLE WITH PATIENT HAVING NO COMPLAINTS OF NAUSEA. PATIENT DID COMPLAIN OF PAIN IN LEFT LEG/FOOT WHICH WAS TREATED THROUGH MEDICATIONS AND REPOSITIONING. ALERT AND ORIENTED BUT FORGETFUL, PATIENT IS ABLE TO PARTICIPATE IN CARE. BREATHING STABLE EVIDENCED BY ASSESSMENTS AND CONTINUOUS SATURATION MONITORING. PATIENT KEPT NPO THROUGHOUT SHIFT. PATIENT REQUIRED DEEP SUCTION VIA RT AND PRODUCED COPIOUS AMOUNTS OF ORAL SECRETIONS. FREQUENT SUCTION VIA YAUNKER BY NURSING. SACRAL WOUNDS CHANGED MULTIPLE TIMES DUE TO FECAL INCONTINENCE. PATIENT IS UPSET THAT HE HAS NOT SLEPT WELL OVER SHIFT. CONTINUE PLAN OF CARE.
[2020-01-29 06:06] LABS: HEMATOCRIT 31.6 % (42.0-52.0); HEMOGLOBIN 10.2 gm/dL (14.0-18.0); MCH 29.9 pg (26.0-34.0); MCHC 32.3 g/dL (28.0-37.0); MCV 92.6 fL (80.0-100.0); RBC 3.42 mil/uL (4.50-6.00); RDW 16.1 % (10.5-14.5); WBC 13.7 thou/uL (4.0-11.0)
[2020-01-29 06:13] LABS: CALCIUM 8.4 mg/dL (8.5-10.1); CREATININE 0.4 mg/dL (0.7-1.3); MAGNESIUM 2.2 mg/dL (1.8-2.4); POTASSIUM 4.2 mmol/L (3.5-5.1)
[2020-01-29] MEDS ORDERED: ASPIR 8181 MG PO (07:40)
[2020-01-29] MEDS ORDERED: CLOPIDOGREL75 MG PO (07:40)
[2020-01-29] MEDS ORDERED: LATANOPROST2.5 ML OPHTHALMIC (12:27)
[2020-01-29] MEDS ORDERED: LEVAQUIN 750 M750 MG PO (12:27)
[2020-01-29] MEDS ORDERED: ROBITUSSIN100 MG/53 PER TUBE (12:27)
--- NOTE | 2020-01-29 12:54 | NUR ---
ERWINO. CALM. DR. PHILLIP HERE, MAY DISCHARGE PATIENT DEPENDING ON ST EVAL. AT BEDSIDE. SR/ST PER TELE. FALL PRECAUTIONS IN PLACE. WILL CONTINUE TO FOLLOW CLOSELY.
--- NOTE | 2020-01-29 12:57 | NUR ---
Calorie count was in progress however pt refused all meals 01/26, then npo, and now on puree diet as pleasure feeds. Recommend continue glucerna 1.2 at 80ml/hr continuous
--- NOTE | 2020-01-29 13:27 | NUR ---
PT DISCHARGING TODAY TO HOME WITH [facility] FAXED DC ORDERS/SUMMARY RECEIVED CONFIRMATION AND SPOKE WITH MIRA IN INTAKE SHE WILL NOTIFY PT TIME OF VISITS.
[2020-01-29] MEDS ORDERED: NEBULIZER MISCELL (14:19)
--- NOTE | 2020-01-29 15:23 | NUR ---
Patient to dc home today. Patient to have HH with [facility]. pa network planner faxed orders. Sp with Crystal caregiver at bedside. Arranged [facility] for [phone] for home. verified address. Nebulizer script sent to [facility] for nebulizer for home. no further needs
== END 2020-01-29 17:10 | disposition home health service (06) | DRG 853 ==
LOC: ER 21:38 → EROBS 23:14 → ICU 23:14 → 2N 01-19 15:32
PROVIDERS: Internal Medicine; Internal Medicine Pulmonary Disease; Nurse Practitioner; Nurse Practitioner Family; Specialist; Student in an Organized Health Care Education/Training Program; ADMIT Hospitalist; ATTEND Hospitalist
PROC: 0DH63UZ Insertion of Feeding Device into Stomach, Percutaneous Approach (ICD-10-PCS; 2020-01-16)
PROC: 0DP63UZ Removal of Feeding Device from Stomach, Percutaneous Approach (ICD-10-PCS; 2020-01-16)
PROC: 5A1945Z Respiratory Ventilation, 24-96 Consecutive Hours (ICD-10-PCS; principal; 2020-01-17)
PROC: B4181ZZ Fluoroscopy of Bilateral Renal Arteries using Low Osmolar Contrast (ICD-10-PCS; principal; 2020-01-17)
PROC: 0BH17EZ Insertion of Endotracheal Airway into Trachea, Via Natural or Artificial Opening (ICD-10-PCS; principal; 2020-01-17)
PROC: 04CK3ZZ Extirpation of Matter from Right Femoral Artery, Percutaneous Approach (ICD-10-PCS; principal; 2020-01-17)
PROC: 04HK3DZ Insertion of Intraluminal Device into Right Femoral Artery, Percutaneous Approach (ICD-10-PCS; principal; 2020-01-17)
PROC: 047H3DZ Dilation of Right External Iliac Artery with Intraluminal Device, Percutaneous Approach (ICD-10-PCS; principal; 2020-01-17)
PROC: 047J3DZ Dilation of Left External Iliac Artery with Intraluminal Device, Percutaneous Approach (ICD-10-PCS; principal; 2020-01-17)
PROC: 067G3DZ Dilation of Left External Iliac Vein with Intraluminal Device, Percutaneous Approach (ICD-10-PCS; principal; 2020-01-17)
PROC: 5A09357 Assistance with Respiratory Ventilation, Less than 24 Consecutive Hours, Continuous Positive Airway Pressure (ICD-10-PCS; 2020-01-17)
PROC: 02HV33Z Insertion of Infusion Device into Superior Vena Cava, Percutaneous Approach (ICD-10-PCS; 2020-01-17)
PROC: B41D1ZZ Fluoroscopy of Aorta and Bilateral Lower Extremity Arteries using Low Osmolar Contrast (ICD-10-PCS; 2020-01-23)
PROC: 047L3DZ Dilation of Left Femoral Artery with Intraluminal Device, Percutaneous Approach (ICD-10-PCS; 2020-01-24)
PROC: 04CL3ZZ Extirpation of Matter from Left Femoral Artery, Percutaneous Approach (ICD-10-PCS; 2020-01-24)
DX: A41.9 Sepsis, unspecified organism (principal); L89.613 Pressure ulcer of right heel, stage 3; L89.153 Pressure ulcer of sacral region, stage 3; G92 Toxic encephalopathy; G82.50 Quadriplegia, unspecified; J96.21 Acute and chronic respiratory failure with hypoxia; J96.22 Acute and chronic respiratory failure with hypercapnia; E43 Unspecified severe protein-calorie malnutrition; J69.0 Pneumonitis due to inhalation of food and vomit; N39.0 Urinary tract infection, site not specified; K94.23 Gastrostomy malfunction; E87.1 Hypo-osmolality and hyponatremia; R47.02 Dysphasia; L89.159 Pressure ulcer of sacral region, unspecified stage; Z20.828 Contact with and (suspected) exposure to other viral communicable diseases; E87.5 Hyperkalemia; E87.8 Other disorders of electrolyte and fluid balance, not elsewhere classified; E11.51 Type 2 diabetes mellitus with diabetic peripheral angiopathy without gangrene; Z79.84 Long term (current) use of oral hypoglycemic drugs; Z79.899 Other long term (current) drug therapy; Z79.891 Long term (current) use of opiate analgesic; Z68.21 Body mass index [BMI] 21.0-21.9, adult
CPT/HCPCS: 10078; 10081; 27000; 62110; 62900; 70005